=== PATIENT | female | born 1995 | race Caucasian/White ===

== ENCOUNTER 2022-02-24 22:30 | Emergency (ER) | payer OTHER, SELFPAY ==
[2022-02-24 22:51] VITALS: BP 140/111; PULSE 66; RESP 16; TEMP 37.2; O2SAT 99; BMI 19.4
--- NOTE | 2022-02-24 23:10 | CRLHL7_ITS ---
For Patients: As a result of the Cures Act, medical imaging exams and procedure reports are released immediately into your electronic medical record. You may view this report before your referring provider. If you have questions, please contact your health care provider. HISTORY: Pain after impact injury to the top of the foot COMPARISON: None available. FINDINGS: The right foot is examined with AP, lateral, and oblique views. There is no sign of fracture or dislocation. The soft tissues are normal in appearance without sign of radio-opaque foreign body. No degenerative disease is seen. IMPRESSION: Normal right foot. Dictated by Emile Meyer MD @ 02/24/2022 11:42:49 PM (Electronically Signed)
--- NOTE | 2022-02-24 23:10 | ED.GENADULT ---
HPI - General Adult General Time Seen by Provider: 23:10 Date Seen: 02/24/22 Chief complaint: Extremity Pain/Injury, Lower Stated complaint: Right Foot Injury Time Seen by Provider: 02/24/22 22:52 Source: patient and family Mode of arrival: ambulatory Limitations: no limitations History of Present Illness HPI narrative: 18-year-old female who presents today with her spouse for right foot pain after an injury. About 6 hours prior to coming emergency department she hit her foot on a table. Gradual onset of pain on the dorsum of the foot and when she describes as tightness. Able to ambulate. Took ibuprofen before coming in. Related Data Home Medications Medication Instructions Recorded Confirmed ibuprofen 200 mg tablet (Advil) 400 mg PO Q6-8H PRN 02/24/22 02/24/22 oral control 02/24/22 Allergies Allergy/AdvReac Type Severity Reaction Status Date / Time No Known Drug Allergies Allergy Verified 02/24/22 22:58 Review of Systems Status of ROS: Reports: 10 or more systems reviewed and unremarkable except as noted in History and below [facility] Medical History (Updated 02/24/22 @ 23:13 by Alexis Rico MD) Anxiety Exam Narrative: Exam Narrative: General: well nourished , NAD Head: Atraumatic and normocephalic ENT: External ears and external nose are normal Eyes: Conjunctiva clear, pupils are equal reactive, external ocular motions are intact Neck: Full spontaneous range of motion of the neck Lungs: No respiratory distress Musculoskeletal: Tenderness on the dorsum of the right foot. No tenderness at the base of the 5th metatarsal, no pain with midfoot squeeze test. No tenderness, swelling, deformity of the ankle. Pain with passive extension of the toes and ankle across the dorsum of the foot. Neurologic: No gross focal neurologic deficits Skin: No rashes Psych: Mood and affect are appropriate Const: Vital Signs, click to edit/add: Vital Signs - 24 hr 02/24/22 22:51 Temperature 99.0 F Pulse Rate [Left P ulse Oximeter] 66 Respiratory Rate 16 Blood Pressure [Ri ght Upper Arm] 140/111 H Pulse Oximetry 99 Oxygen Delivery Me thod Room Air Course Course Hospital Course: Patient seen and examined, prior records are reviewed. Patient presents today with right foot pain after hitting it on a table at home. Gradual onset, no bony tenderness and negative midfoot squeeze test. This likely represents soft tissue injury, x-rays are ordered to evaluate for bony injury. If these are negative, symptomatic treatment with ice and elevation, Tylenol and ibuprofen for pain. Reevaluation(s) Reevaluation #1: X-ray independently interpreted by me does not demonstrate any acute fracture or bony abnormality, radiology interpretation agrees. Plan to discharge with symptom treatment Time: 23:48 Vital Signs Vital signs: Initial Vital Signs Temperature 99.0 F 02/24/22 22:51 Temperature Source Temporal Artery Scan 02/24/22 22:51 Pulse Rate 66 02/24/22 22:51 Respiratory Rate 16 02/24/22 22:51 Blood Pressure 140/111 H 02/24/22 22:51 Blood Pressure Mean 120 02/24/22 22:51 Blood Pressure Position Sitting 02/24/22 22:51 Pulse Oximetry 99 02/24/22 22:51 Oxygen Delivery Method 02/24/22 22:51 Vital Signs Temperature 99.0 F 02/24/22 22:51 Pulse Rate 66 02/24/22 22:51 Respiratory Rate 16 02/24/22 22:51 Blood Pressure 140/111 H 02/24/22 22:51 Pulse Oximetry 99 02/24/22 22:51 Oxygen Delivery Method 02/24/22 22:51 Temperature 99.0 F 02/24/22 22:51 Pulse Rate 66 02/24/22 22:51 Respiratory Rate 16 02/24/22 22:51 Blood Pressure 140/111 H 02/24/22 22:51 Pulse Oximetry 99 02/24/22 22:51 Oxygen Delivery Method 02/24/22 22:51 Medical Decision Making Medical Records Medical records reviewed: Yes I reviewed the patient's medical records Lab Data Lab results reviewed: Yes I reviewed the patient's lab results Discharge Plan Discharge Clinical Impression: Contusion of foot Patient Disposition: Home w/ Parent or Adult Condition: Stable Instructions: Foot Contusion (ED) Additional Instructions: Elevate the foot as able. Tylenol and ibuprofen as needed for pain. Ice 15-20 minutes at a time every 2-3 hours while awake for the next 2 days. Activity Level: Activity as Tolerated Discharge Diet: Regular Prescriptions: No Action oral control ibuprofen [Advil] 200 mg tablet 400 mg PO Q6-8H PRN Stand Alone Forms: [facility] Info Instructions
== END 2022-02-25 00:03 | disposition home or self-care (01) ==
LOC: ED 23:55
PROVIDERS: Emergency Provider Family Medicine; PCP Family Medicine
DX: M79.671 Pain in right foot (principal); W22.8XXA Striking against or struck by other objects, initial encounter
CPT/HCPCS: 73630; 99283

== ENCOUNTER 2022-03-28 14:01 | Outpatient (CLI) | payer OTHER, SELFPAY ==
[2022-03-31 01:23] LABS: Rubella Antibody IgG 6.5 IU/mL
== END 2022-03-28 14:02 | disposition home or self-care (01) ==
PROVIDERS: PCP Family Medicine; Visit Provider Obstetrics & Gynecology
DX: Z31.69 Encounter for other general counseling and advice on procreation (principal)
CPT/HCPCS: 86762; 86900; 86901

== ENCOUNTER 2022-08-23 08:07 | Outpatient (CLI) | payer OTHER, SELFPAY ==
--- NOTE | 2022-08-23 08:15 | CRLHL7_ITS ---
For Patients: As a result of the Cures Act, medical imaging exams and procedure reports are released immediately into your electronic medical record. You may view this report before your referring provider. If you have questions, please contact your health care provider. INDICATION: First trimester scan, establish dates. COMPARISON: None. TECHNIQUE: Real-time moreno-scale imaging of the pelvis was performed. FINDINGS: Sonographic imaging demonstrates a single living intrauterine gestation. The embryo demonstrates a regular cardiac rate measuring 176 beats per minute. The embryo`s crown-rump length measurement of 3.3 cm corresponds to a gestational age of 10 weeks 1 day with a sonographic due date of 03/20/2023. There is a normal-appearing yolk sac. There are no gross abnormalities noted within the embryo at this early state of development. The gestational sac has a normal appearance. There is no evidence of a perigestational hemorrhage. The amount of fluid within the sac appears appropriate for gestational age. The cervix is closed. The myometrium appears normal. The ovaries are of normal size. There are no suspicious fluid collections noted in the cul-de-sac. IMPRESSION: Normal first trimester OB ultrasound exam. Gestational age calculated at 10 weeks 1 day with a sonographic due date of 03/20/2023. Dictated by Rad Olvera MD @ 08/23/2022 12:03:37 PM (Electronically Signed)
== END 2022-08-23 08:08 | disposition home or self-care (01) ==
LOC: US 08:08
PROVIDERS: PCP Family Medicine; Visit Provider Registered Nurse
DX: Z34.91 Encounter for supervision of normal pregnancy, unspecified, first trimester (principal); Z3A.10 10 weeks gestation of pregnancy
CPT/HCPCS: 76817; 86703; 86803; 86850; 86900; 86901; 87086; 87340; 87491; 87591

== ENCOUNTER 2022-08-23 08:59 | Outpatient (CLI) | payer OTHER, SELFPAY ==
[2022-08-23 17:46] LABS: Chlamydia DNA Amplified* NOT DETECTED (No Detected); GC DNA Amplified* NOT DETECTED (No Detected)
== END 2022-08-23 09:00 | disposition home or self-care (01) ==
PROVIDERS: PCP Family Medicine; Visit Provider Registered Nurse
DX: Z34.91 Encounter for supervision of normal pregnancy, unspecified, first trimester (principal); Z3A.09 9 weeks gestation of pregnancy
CPT/HCPCS: 86592; 86703; 86762; 86787; 86803; 86850; 86900; 86901; 87086; 87340; 87491; 87591

== ENCOUNTER 2022-10-18 17:55 | Outpatient (CLI) | payer OTHER, SELFPAY | END 2022-10-18 17:56 | disposition home or self-care (01) | LOC: NFLDREF 17:57 | PROVIDERS: PCP Family Medicine; Visit Provider Registered Nurse | DX: Z34.92 Encounter for supervision of normal pregnancy, unspecified, second trimester (principal); Z3A.17 17 weeks gestation of pregnancy | CPT/HCPCS: 81511 ==

== ENCOUNTER 2022-11-09 12:03 | Outpatient (CLI) | payer OTHER, SELFPAY ==
--- NOTE | 2022-11-09 12:15 | CRLHL7_ITS ---
For Patients: As a result of the Century Cures Act, medical imaging exams and procedure reports are released immediately into your electronic medical record. You may view this report before your referring provider. If you have questions, please contact your health care provider. INDICATION: Evaluate anatomy. COMPARISON: 08/23/2022 TECHNIQUE: Real time moreno scale imaging of the fetus was performed as well as color Doppler analysis of the umbilical vessels. FINDINGS: Sonographic imaging demonstrates a single living intrauterine gestation. Fetus demonstrates a regular cardiac rate of 138 beats per minute. Fetus has a breech position. The placenta lies anteriorly without evidence of placenta previa. The edge of the placenta is located 3.8 cm from the internal cervical os. Amniotic fluid volume appears normal. Single deepest vertical pocket: 5.4 cm. The cervix is closed and measures 3.7 cm in length. The composite ultrasound gestational age is calculated at 21 weeks 4 days with an estimated sonographic due date of 03/18/2023. The estimated weight is 444 grams which lies at the 95th %. The following biometric measurements were obtained: Biparietal diameter: 5.0 cm/21 weeks 1 day 73rd% Head circumference: 18.6 cm/21 weeks 0 days 58th% Abdominal circumference: 17.7 cm/22 weeks 4 days 94th% Femur length: 3.5 cm/20 weeks 6 days 54th% The HC/AC ratio measures: 1.05 range (1.06-1.24) On anatomic survey, there is a normal appearance of the cerebral ventricles, cavum septi pellucidi, cisterna magna and cerebellum. The nose, lips, and facial profile appear normal. The cervical, thoracic and lumbar spine are well visualized and appear normal. There is a normal four-chamber heart view and the left and right ventricular outflow tracts appear normal. The diaphragm and stomach appear normal. The bladder appears normal. Bilateral pelviectasis measuring 5.7 millimeters on the right and 3.7 millimeters on the left. There is a normal three-vessel cord and there is an eccentric cord insertion site. The four extremities appear normal. IMPRESSION: Sonographic age is 21 weeks 4 days and sonographic due date is 03/18/2023. Sonographic age 1 week ahead of the clinical age. Mild right renal pelviectasis measuring 5.5 millimeters. Follow-up in the 3rd trimester recommended. Remainder of the anatomic survey is normal. Dictated by Rad Olvera MD @ 11/10/2022 11:09:52 AM (Electronically Signed)
== END 2022-11-09 12:04 | disposition home or self-care (01) ==
LOC: US 12:04
PROVIDERS: PCP Family Medicine; Visit Provider Registered Nurse
DX: Z34.92 Encounter for supervision of normal pregnancy, unspecified, second trimester (principal); Z3A.21 21 weeks gestation of pregnancy
CPT/HCPCS: 76805

== ENCOUNTER 2023-01-04 10:50 | Outpatient (CLI) | payer OTHER, SELFPAY | END 2023-01-04 10:51 | disposition home or self-care (01) | LOC: NFLDREF 01-05 11:37 | PROVIDERS: PCP Family Medicine; Referring Provider Family Medicine; Visit Provider Obstetrics & Gynecology | DX: Z34.90 Encounter for supervision of normal pregnancy, unspecified, unspecified trimester (principal) | CPT/HCPCS: 86592; 86850 ==

== ENCOUNTER 2023-01-04 10:57 | Outpatient (CLI) | payer OTHER, SELFPAY ==
--- NOTE | 2023-01-04 11:00 | CRLHL7_ITS ---
For Patients: As a result of the Century Cures Act, medical imaging exams and procedure reports are released immediately into your electronic medical record. You may view this report before your referring provider. If you have questions, please contact your health care provider. INDICATION: Third trimester scan, evaluate growth. COMPARISON: 11/09/2022 TECHNIQUE: Real time moreno scale imaging of the fetus was performed. FINDINGS: Sonographic imaging demonstrates a single living intrauterine gestation. Fetus demonstrates a regular cardiac rate of 149 beats per minute. Fetus has a vertex position. The placenta lies left anterior. The edge of the placenta is located 6.8 cm from the internal cervical os. Amniotic fluid volume appears normal and there is a single deepest vertical pocket: 5.5 cm. The estimated weight is 1310gm which lies at the 51st %. On the prior OB ultrasound exam dated 11/09/2022 the estimated weight was at the 95th%. BPD 84th percentile. HC 78th percentile. AC 46th percentile. FL 36th percentile. The HC/AC ratio measures 1.14 range (0.98-1.20). Left renal pelviectasis measures 2 millimeters, considered normal. Placental cord insertion cannot be visualized on the current study. IMPRESSION: Sonographic gestational age 29 weeks 4 days and sonographic due date 03/18/2023. Sonographic age 1 week ahead of the clinical age. Estimated weight 51st percentile. Abdominal circumference 46th percentile. Dictated by Rad Olvera MD @ 01/06/2023 11:26:51 AM (Electronically Signed)
== END 2023-01-04 10:58 | disposition home or self-care (01) ==
PROVIDERS: PCP Family Medicine; Visit Provider Obstetrics & Gynecology
DX: Z34.93 Encounter for supervision of normal pregnancy, unspecified, third trimester (principal); Z3A.29 29 weeks gestation of pregnancy
CPT/HCPCS: 76816; 86850

== ENCOUNTER 2023-02-27 12:40 | Outpatient (CLI) | payer OTHER, SELFPAY | END 2023-02-27 12:41 | disposition home or self-care (01) | PROVIDERS: PCP Family Medicine; Referring Provider Family Medicine; Visit Provider Obstetrics & Gynecology | DX: Z36.85 Encounter for antenatal screening for Streptococcus B (principal) | CPT/HCPCS: 87081; 87653 ==

== ENCOUNTER 2023-03-14 13:45 | Outpatient (RCR) | payer OTHER, SELFPAY | END 2023-05-19 17:10 | disposition home or self-care (01) | PROVIDERS: PCP Family Medicine; Visit Provider Obstetrics & Gynecology | DX: M25.512 Pain in left shoulder (principal); M41.9 Scoliosis, unspecified; M54.50 Low back pain, unspecified; Z51.89 Encounter for other specified aftercare; M62.89 Other specified disorders of muscle; R29.3 Abnormal posture; M54.6 Pain in thoracic spine; R29.898 Other symptoms and signs involving the musculoskeletal system; N39.41 Urge incontinence; K59.00 Constipation, unspecified; Z33.1 Pregnant state, incidental; Z3A.34 34 weeks gestation of pregnancy | CPT/HCPCS: 97110; 97140; 97162 ==

== ENCOUNTER 2023-03-25 21:13 | Outpatient (CLI) | payer OTHER, SELFPAY ==
[2023-03-25 21:41] VITALS: BP 127/79; PULSE 61; RESP 16; TEMP 36.7
[2023-03-25 21:51] LABS: Amnisure Rom* Negative
[2023-03-25 23:12] LABS: Appearance Urine Clear (Clear); Bilirubin Urine Negative (Negative); Blood Urine Trace-intact (Negative); Color Urine Yellow (Yellow); Glucose Urine Negative (Negative); Ketones Urine Negative (Negative); Leukocyte Esterase Urine Trace (Negative); Nitrite Urine Negative (Negative); Protein Urine Negative (Negative); Urobilinogen Urine 0.2 (0.2-1.0)
[2023-03-25 23:17] LABS: Bacteria Urine Moderate; RBC Urine 0-2 (0-2); Squamous Epithelial Cell Urine Few (None-Few)
--- NOTE | 2023-03-25 23:36 | PC.OBNST ---
NST Note NST Note Start: 03/25/23 21:18 Freq: ONCE Status: Active Protocol: Document 03/25/23 23:35 BARBARA (Rec: 03/25/23 23:36 BARBARA [id number]) NST Note 1 Para (# of births) 0 EDC 03/25/23 Gestational Age In Weeks & Days 40 Weeks & 0 Days Patient Presented with Complaint(s) of Leaking fluid,Other Other Complaints Questionable rupture of membranes Reactive Yes RN Davide Lawrence, ALTAGRACIA Date 03/25/23 Reactive Yes ALTAGRACIA Brock, ALTAGRACIA Date 03/25/23 OB NST charge Yes Complete NST Note via Write Note Yes The provider's electronic signature indicates the NST is reactive/appropriate for gestational age. *Note to provider: If an addendum is required, open the patient's chart and click on the note under the Nurse/Allied Health tab.
[2023-03-26 00:13] LABS: Bacterial Vaginosis* Not Detected (No Detected); Candida glab/krus Not Detected (No Detected); Candida species Not Detected (No Detected); Trichomonas vaginalis Not Detected (No Detected)
== END 2023-03-25 22:30 | disposition home or self-care (01) ==
LOC: OB OUT 21:13 → OB 21:15
PROVIDERS: PCP Family Medicine; Visit Provider Obstetrics & Gynecology
DX: O47.1 False labor at or after 37 completed weeks of gestation (principal); Z3A.40 40 weeks gestation of pregnancy
CPT/HCPCS: 59025; 81003; 81015; 81513; 84112; 87086; 87481; 87661; G0463

== ENCOUNTER 2023-03-31 05:53 | Inpatient (IN) | payer OTHER, SELFPAY ==
[2023-03-31] VITALS (67 sets, daily range): BP systolic 93–136; BP diastolic 52–79; PULSE 67–112; RESP 15–18; TEMP 36.7–37.1; O2SAT 93–100; BMI 23.3
[2023-03-31 07:19] LABS: Basophils Percent Auto 0.2 % (0.0-3.0); Eosinophils Percent Auto 0.2 % (0.0-7.0); Hematocrit 34.6 % (33.0-51.0); Hemoglobin* 11.8 gm/dL (12.0-16.0); Immature Granulocytes Pct Auto 0.2 %; Lymphocytes Percent Auto 11.4 % (20-44); Mean Corpuscular HGB Conc 34 gm/dL (32-36); Mean Corpuscular Hemoglobin 35 pg (26-34); Mean Corpuscular Volume 102 fL (80-100); Monocytes Percent Auto 5.4 % (0.0-11.0); Neutrophils Percent Auto 82.6 % (42.0-72.0); Platelet Count* 253 K/uL (140-440); RDW Coefficient of Variation % 12.1 % (11.5-15.5); Red Blood Count 3.41 m/uL (4.00-5.20); White Blood Count* 11.74 K/uL (4.50-11.00)
[2023-03-31 07:21] LABS: Slide Review Reflex No
--- NOTE | 2023-03-31 12:06 | P.LDBA_ITS ---
Subjective History of Present Illness Time Seen by Provider: 09:00 Date Seen: 03/31/23 Narrative: Gypsy is being admitted to Labor and Delivery for early labor. She was originally scheduled to have an induction of labor today but she came in, in early labor instead. She is a 27 year old at 40 weeks 6 days gestation. Her full history and physical was dictated by Dr. Potter on 03/10/2023. Please see this for details. Specific Issues/Plans Gypsy G 1 P 0 : Wilmer. Baby: Girl. H&P by [facility] on 03/10/23 1. Nausea and significant food aversions. Last 10 lb prior to 1st OB visit. No vomiting. Fay submitted. 2. History of anxiety. Mood stable at 1st OB visit. Patient plans to monitor for any mood symptoms. 3. anatomy scan: Right pyelectasis, 5.5 mm. EFW 95%. Repeat US for: EFW and pyelectasis @ 28 wks. * 01/04/23 f/u EFW and pylectasis: EFW: 1310 g, 2 lb 14 oz, 51%. Right renal pelvis< 2mm. Left renal pelvis 2 mm. 4. History of vulvar vestibulitis, recurrent pain with intercourse. Topical lidocaine ointment started at 20 wks gestation. 5. Hx of scoliosis, worsening left shoulder/upper extremity pain and numbness. PT consult ordered on 12/07. COVID: Not vaccinated. Recommended. Reviewed risks of COVID infection during . Declined booster. FLU: 11/09/22 RSV: 02/02/2023 TDAP: 01/20/23 OB - Problem Based A/P Additional Plan (1) Spontaneous onset of labor: Status: Acute Plan 1. The patient is planning an epidural for labor analgesia 2. GBS negative 3. Blood type is O positive, antibody screen negative 4. Expected management. OB Exam Physical Exam Vital signs: Temp Pulse Resp BP Pulse Ox 98.1 F 72 18 131/77 98 03/31/23 11:03/31/23 11:25 03/31/23 11:03/31/23 11:03/31/23 06:14 Narrative: GENERAL APPEARANCE: Pleasant, , well-groomed woman in no acute distress. VITAL SIGNS: as noted in nursing notes HEAD: Normocephalic, atraumatic. THYROID: no masses, nodularity, tenderness or enlargement. LUNGS: Clear to auscultation bilaterally without wheezes, rales or rhonchi. HEART: Regular rate and rhythm with normal S1 and S2. No gallop, rub or murmur. ABDOMEN: Gravid. Soft, nontender, nondistended, with normal bowels sounds throughout. EFM: 130s baseline, accelerations present, decelerations absent, reactive, category 1. PRESENTATION: Vertex by Jose's maneuvers. SVE per nursin-4 cm/ 90 %/ -1/soft/anterior. Lal score: 11 EXTREMITIES: No cyanosis, clubbing, or edema. No varicosities. NEUROLOGIC: Normal gait and balance. Normal deep tendon reflexes at bilateral patella 2+/2, equal without clonus. PSYCHIATRIC: alert and oriented x3. Normal speech pattern, eye contact and affect. SKIN: Warm, dry, and well perfused. Good turgor. No lesions, nodules or rashes.
[2023-03-31] MEDS: LACTATED RINGERS 1000 ML 1,000 ML 500 ML IV ×2 (12:39→13:49)
[2023-03-31] MEDS: ROPIVACAINE 0.2% 100 ml 100 ML 12 MG EPIDURAL ×2 (13:22→19:33)
--- NOTE | 2023-03-31 13:37 | PM.ANBPRC ---
PFSH PFS Medical History Anxiety ?F41.9 - Anxiety disorder, unspecified (ICD-10) Surgical History H/O wisdom tooth extraction ?K08.409 - Partial loss of teeth, unspecified cause, unspecified class (ICD-10) Family History Paternal Grandfather Diabetes Paternal Grandmother Osteoporosis Father Multiple sclerosis Social History What is your current living situation?: I presently have a place to live Problems where you live: no known problems In the past 12 months, utilities in danger of being shut off: no In past 12 months, lack of transportation kept you from medical appts, meetings, work, or getting things needed for daily living: no In the past 12 mos, have been you worried that your food would run out before you had money to buy more?: never true In the past 12 mos, the food you bought just didn't last and you didn't have money to buy more?: never true Smoking Status: Never smoker How often does anyone, including family, friends and others, physically hurt you: never How often does anyone, including family, friends and others, insult or talk down to you: never How often does anyone, including family, friends and others, threaten you with harm: never How often does anyone, including family, friends and others, scream or curse at you: never Little interest or pleasure in doing things: not at all Feeling down, depressed, or hopeless: not at all Meds Home Medications and Allergies Home Medications Medication Instructions Recorded Confirmed Type docosahexaenoic acid 200 mg mg PO 08/23/22 03/24/23 History capsule ( DHA) Allergies Allergy/AdvReac Type Severity Reaction Status Date / Time No Known Drug Allergies Allergy Verified 03/24/23 15:18 Results Labs Labs: Laboratory Results - last 24 hr 03/31/23 07:03 WBC 11.74 H RBC 3.41 L Hgb 11.8 L Hct 34.6 MCV 102 H MCH 35 H MCHC 34 RDW Coeff of Ever 12.1 Plt Count 253 Neut % (Auto) 82.6 H Lymph % (Auto) 11.4 L [place] % (Auto) 5.4 Eos % (Auto) 0.2 Baso % (Auto) 0.2 Neut # (Auto) 9.70 H Lymph # (Auto) 1.30 [place] # (Auto) 0.60 Eos # (Auto) 0.00 Baso # (Auto) 0.00 Abs Immat Gran (auto) 0.00 Imm/Tot Granulo (auto) 0.2 Blood Type O Positive Antibody Screen NEGATIVE Vital Signs Vital Signs: Last Vital Signs Temp 98.4 F 03/31/23 13:37 Pulse 68 03/31/23 13:33 Resp 18 03/31/23 13:37 BP 131/73 03/31/23 13:33 Pulse Ox 97 03/31/23 13:36 Weight: 73.845 kg Height: 177.8 cm Anesthesia Procedures Epidural Insertion Patient Location: OB Start Time: 13:00 Stop Time: 13:38 Start Date: 03/31/23 Stop Date: 03/31/23 Reason for Block: procedure for pain Patient Position: sitting Performed By: Bj Tapia Preanesthetic Checklist: IV checked, risks and benefits discussed, monitors and equipment checked, pre-op evaluation, timeout performed and anesthesia consent Prep: chlorhexidine gluconate Monitoring: blood pressure monitoring, continuous pulse oximetry and heart rate Approach: midline Vertebral Space: lumbar (1-5) Epidural Technique: FARHAT saline Needle Type: Tuohy needle Injection Technique: continuous catheter Needle gauge: 17 Needle Length (cm): 10 cm Needle Insertion Depth (cm): 6 Catheter Gauge: 19 Catheter Type: multi-orifice Catheter at skin depth (cm): 12 Test Dose Result: negative and lidocaine 1.5% with epinephrine 1 to 200,000
--- NOTE | 2023-03-31 14:18 | PM.OBPNL ---
Subjective Time Seen by Provider: 14:05 Date Seen: 03/31/23 Narrative: Subjective: Patient is comfortable w/ epidural. Has not required Pitocin augmentation. Verbal consent obtained for artificial rupture of membranes. Vital signs: Per electronic medical record. EFM: Baseline 140s, positive accelerations, negative decelerations, moderate variability, reactive. Category 1. [place]: Contractions every 2-3 minutes. SVE: 6 cm/9 %/0. AROM with clear fluid at 2:10 p.m. Assessment: 27-year-old 1 para 0 at 40 weeks 6 days gestation progressing in labor Plan: 1. Started Pitocin per induction protocol if needed. 2. Expectant management. Objective Vital Signs: Last Vital Signs Temp 98.4 F 03/31/23 13:37 Pulse 71 03/31/23 14:14 Resp 18 03/31/23 13:37 BP 99/57 L 03/31/23 14:14 Pulse Ox 96 03/31/23 13:41
[2023-03-31] MEDS: ONDANSETRON 2 MG/ML inj 4 MG IV (17:11)
--- NOTE | 2023-03-31 18:19 | PM.OBPNL ---
Subjective Time Seen by Provider: 17:45 Date Seen: 03/31/23 Narrative: Subjective: The patient is comfortable with an epidural. She is not on Pitocin. Vital signs: Per electronic medical record. EFM: Baseline 140s, positive accelerations, [+/-] decelerations, moderate variability, reactive. Category 1. [place]: Contractions every 2 minutes. SVE: 9+cm/100 %/+1. Assessment: 27-year-old 1 para 0 at 40 weeks 6 days gestation progressing through labor Plan: 1. Expect vaginal delivery. Objective Vital Signs: Last Vital Signs Temp 98.2 F 03/31/23 17:52 Pulse 80 03/31/23 18:14 Resp 18 03/31/23 17:52 BP 100/72 03/31/23 18:14 Pulse Ox 96 03/31/23 13:41
[2023-03-31] MEDS: OXYTOCIN 30 unit/500 ML in NS 30 UNIT/500 ML BAG 300 UNIT IVPB (19:49)
--- NOTE | 2023-03-31 20:11 | W.PM.VAGDEL1 ---
Procedure Delivery date: 03/31/23 Procedure Done: Global Procedure Details: Gypsy is a 27 year-old G 1 P 0 now 1 admitted on 03/31/2023 at 7:00 a.m. at 40 Weeks, 6 Days gestation for spontaneous onset of labor. AROM occurred at 2:04 p.m. on 03/31/2023 with clear fluid. Labor Analgesia: Epidural Pitocin: No Labor onset: 03/31/2023 at 10:00 a.m. Complete: 03/31/2023 at 6:56 p.m. Pushin03/31/2023 at 7:01 p.m. heart tones during second stage were: Reassuring with some variable decelerations with contractions while pushing with immediate return to baseline and moderate variability between contractions.. At 7:47 p.m. a viable female infant delivered in vertex direct OA presentation over second-degree perineal laceration via spontaneous vaginal delivery. The was placed on maternal abdomen. Cord was clamped and cut after a 60 second delay. Nose and mouth were bulb suctioned. weight pending. 8 at 1 minute and 9 at 5 minutes, respectively. Shoulder dystocia: No. Nuchal cord: No Placenta delivered spontaneously and complete at 7:58 p.m. with a 3 vessel cord. Laceration(s): Second-degree perineal. Repaired using 3-0 Vicryl suture in the usual manner. Blood loss: 100 mL. Blood loss measurement type: Quantitative Sponge and needles counts are correct. Specimen: None Mother and infant were stable after delivery. Infant's name: Pending The patient is planning on breast feeding. Events: Labor Augmentation Intrapartal Events: Labor Augmentation Delivery augmentation: rupture of membranes Delivery monitor: external FHT Route of delivery: Laceration description: Perineal - 2nd Degree Delivery repair: Vicryl Anesthesia type: Epidural Disposition: floor Complications: none
[2023-03-31] MEDS: IBUPROFEN 600 MG TABLET PO (22:40)
[2023-04-01 03:29] VITALS: BP 115/78; PULSE 76; RESP 18; TEMP 37.2
[2023-04-01] MEDS: IBUPROFEN 600 MG TABLET PO ×3 (08:48→20:55)
[2023-04-01] MEDS: DOCUSATE SODIUM 100 MG CAPSULE PO (08:49)
[2023-04-01 08:50] VITALS: BP 119/84; PULSE 83; RESP 18; TEMP 36.7; O2SAT 98
--- NOTE | 2023-04-01 10:12 | P.OBPN_ITS ---
OB - PN:Subj Subjective Date Seen: 04/01/23 Interval history: Love is a 27 y.o. who was admitted to L & D for induction of labor but was found to be in labor. ?She had an uncomplicated spontaneous vaginal delivery .?The patient feels well. ?The pain is well controlled with current medications. ?She has no new complaints. ?She is and reports things are going well.? the patient has done well.? Vitals have been stable.? She has remained afebrile.? Has a good appetite, is tolerating a general diet. ?She is voiding without difficulty.? She is passing gas and has not had a bowel movement.? She is ambulating and denies any dizziness.? Has small amount of rubra lochia. ? status: [place] feeding status: exclusively OB - PN: Obj Exam Physical Exam: Vital signs: Temp Pulse Resp BP Pulse Ox O2 Del Method 98.0 F 83 18 119/84 98 Room Air 04/01/23 08:50 04/01/23 08:50 04/01/23 08:50 04/01/23 08:50 04/01/23 08:50 04/01/23 08:50 Narrative: VITAL SIGNS: As noted above. GENERAL APPEARANCE: Alert, cooperative female in no acute distress. MOOD & AFFECT: Normal. ABDOMEN: Soft, non-distended and nontender. : Normal lochia EXTREMITIES: Nonedematous. Well perfused. Nontender. OB - PN: A/P Delivery Assessment and Plan (1) Spontaneous onset of labor: Status: Acute Plan day: 1 Plan: routine care Comments: Plan for discharge tomorrow morning.
--- NOTE | 2023-04-01 12:51 | PM.ANPOST ---
Post Anesthesia Note Post Anesthesia Note Patient seen: Inpatient Respiratory Status: adequate Cardiovascular Status: adequate Mental Status: baseline Pain: adequate Temp: baseline Anesthetic awareness: N/A Complications: none Follow care: none
[2023-04-01 12:56] VITALS: BP 125/78; PULSE 83; RESP 18; TEMP 36.7
[2023-04-01 16:00] VITALS: BP 118/78; PULSE 83; RESP 18; TEMP 36.7; O2SAT 97
[2023-04-01 20:56] VITALS: BP 118/75; PULSE 69; RESP 18; TEMP 36.5; O2SAT 97
[2023-04-02 01:46] VITALS: BP 126/84; PULSE 64; RESP 18; TEMP 36.6; O2SAT 97
[2023-04-02] MEDS: IBUPROFEN 600 MG TABLET PO ×2 (04:44→09:21)
--- NOTE | 2023-04-02 09:04 | P.DS_ITS ---
DS: Providers Provider Date Seen: 04/02/23 Date of admission: 03/31/23 05:53 Primary care physician: Brielle Combs MD Admitting Clinician: Katerina Duong MD Attending Physician on discharge: Gerri Roth MD Date of Discharge: 04/02/23 DS: Diagnosis Discharge Diagnosis (1) (normal spontaneous vaginal delivery): Status: Acute Exam Narrative: Exam Narrative: VITAL SIGNS: As noted above. GENERAL APPEARANCE: Alert, cooperative female in no acute distress. MOOD & AFFECT: Normal. ABDOMEN: Soft, non-distended and nontender. Well contracted uterus below umbilicus. : Normal lochia. EXTREMITIES: Nonedematous. Well perfused. Nontender. Const: Vital Signs, click to edit/add: Vital Signs - 24 hr 04/01/23 12:56 04/01/23 16:00 04/01/23 20:56 Temperature 98.0 F 98.0 F 97.7 F Pulse Rate [Blood Pressure Cuff] 83 83 69 Respiratory Rate 18 18 18 Blood Pressure [Le ft Arm] 125/78 118/78 118/75 Pulse Oximetry 97 97 Oxygen Delivery Me thod Room Air Room Air Room Air 04/02/23 01:46 Temperature 97.9 F Pulse Rate [Blood Pressure Cuff] 64 Respiratory Rate 18 Blood Pressure [Le ft Arm] 126/84 Pulse Oximetry 97 Oxygen Delivery Me thod Room Air OB - DS: Summary Hospital Course Hospital Course: The patient is a 27 year old G 1 P 1001 at 40 6/7 weeks gestation that was admitted to the Center on 03/31/23 for induction of labor, was found to be in labor. She had an uncomplicated vaginal delivery. She delivered a viable female . She is breast feeding. the patient has done well. Peripartum Data Infant delivery method: Vaginal Laceration description: Perineal - 2nd Degree complications: none Infant Gender: Female Discharge Plan: Home Status at Discharge Functional status at discharge: independent ambulation Overall status at discharge: patient is progressing back to baseline Time Spent with Patient Time attestation: Total time spent providing and/or coordinating discharge services: Time spent: Less than 30 minutes Discharge Plan Discharge Disposition: Home, Self-Care Date of Admission: 03/31/23 05:53 Attending Provider on Discharge: Gerri Roth Primary Care Provider: Brielle Combs Condition: Stable Anticipated Discharge Date/Time: 04/02/23 09:07 Discharge Medications: New acetaminophen 500 mg Tablet 1,000 mg PO Q6H PRNQty: 30 0RF ibuprofen 600 mg Tablet 600 mg PO Q6H PRNQty: 30 0RF Continued DHA 200 mg capsule 200 mg PO DAILY Discontinued ondansetron 4 mg tablet,disintegrating 4 mg PO Q6H PRN (Reason: nausea and vomiting) Qty: 30 1RF lidocaine 5 % ointment 1 applic topical BID PRN (Reason: skin irritation) Qty: 30 0RF Discharge Orders: Discharge Order (Routine); Ordered 04/02/23 Ordered By: Gerri Roth Patient Education: OB Vaginal/Breast Feeding Activity Level: Activity as Tolerated Activity Detail: Nothing vaginally for 6 weeks Discharge Diet: Regular Follow Up Appointments: Brielle Combs MD [Primary Care Provider] - [facility] Discharge Comments: Follow up for 2 week visit and 6 week visit/interested in progesterone only pills.
[2023-04-02 09:15] VITALS: BP 115/71; PULSE 64; RESP 18; TEMP 37
[2023-04-02 09:15] LABS: Rapid Plasma Reagin (RPR) Non Reactive (Non Reactive)
[2023-04-02] MEDS: DOCUSATE SODIUM 100 MG CAPSULE PO (09:21)
== END 2023-04-02 12:45 | disposition home or self-care (01) | DRG 807 ==
PROVIDERS: Admitting Provider Obstetrics & Gynecology; PCP Family Medicine; Visit Provider Obstetrics & Gynecology
DX: O70.1 Second degree perineal laceration during delivery (principal); Z37.0 Single live birth; Z3A.40 40 weeks gestation of pregnancy; O99.344 Other mental disorders complicating childbirth; F41.9 Anxiety disorder, unspecified; N94.810 Vulvar vestibulitis; Z87.39 Personal history of other diseases of the musculoskeletal system and connective tissue
CPT/HCPCS: 01967; 36415; 85018; 85025; 86592; 86850; 86900; 86901; A9270; J0665; J2371; J2405; J2795; J7120

== ENCOUNTER 2023-07-14 08:15 | Outpatient (CLI) | payer OTHER, SELFPAY | END 2023-07-14 08:16 | disposition home or self-care (01) | LOC: NFLDREF 08:16 | PROVIDERS: PCP Family Medicine; Visit Provider Registered Nurse | DX: N92.6 Irregular menstruation, unspecified (principal) | CPT/HCPCS: 84443 ==

== ENCOUNTER 2024-11-27 13:01 | Outpatient (CLI) | payer BC, SELFPAY ==
--- NOTE | 2024-11-27 13:15 | CRLHL7_ITS ---
For Patients: As a result of the Cures Act, medical imaging exams and procedure reports are released immediately into your electronic medical record. You may view this report before your referring provider. If you have questions, please contact your health care provider. OBSTETRICAL ULTRASOUND TRANSVAGINAL CLINICAL INDICATION: Dating and viability. LMP: 09/26/2024 ALBERTA by LMP: 07/03/2025 Gestational age: 8 weeks 6 days PREVIOUS ULTRASOUND: No TECHNIQUE: Real-time moreno-scale imaging of the fetus was performed transvaginal. Transvaginal imaging was performed for better visualization of the endometrium and ovaries. FINDINGS: CRL: 2.2 cm, 8 weeks 6 days; ALBERTA 07/03/2025 heart rate: 189 BPM Gestational sac: 4.0 cm, appears within normal limits Yolk sac: 3.8 mm, appears within normal limits Right ovary: 3.5 x 3.0 x 2.7 cm, CL Left ovary: 3.0 x 1.7 x 2.2 cm IMPRESSION: 1. Single living intrauterine measures 8 weeks 6 days with sonographic due date of 07/03/2025. 2. Subchorionic hemorrhage measures 2.1 x 0.3 x 1.3 cm. 3. Corpus luteal cyst of right ovary. 4. heart rate 189 beats per minute. RAD WREN M.D. Diagnostic Radiologist [email or web address] Transcribed: 5:[address]/Dictated by: Rad Wren MD @ 11/27/2024 5:30:00 PM (Electronically Signed)
== END 2024-11-27 13:02 | disposition home or self-care (01) ==
LOC: US 13:04
PROVIDERS: PCP Family Medicine; Visit Provider Registered Nurse
DX: O20.9 Hemorrhage in early pregnancy, unspecified (principal); O34.81 Maternal care for other abnormalities of pelvic organs, first trimester; N83.11 Corpus luteum cyst of right ovary; Z3A.08 8 weeks gestation of pregnancy
CPT/HCPCS: 76817; 83021; 86592; 86703; 86704; 86706; 86762; 86787; 86803; 86850; 87086; 87340; 87491; 87591; 87624

== ENCOUNTER 2024-11-27 14:03 | Outpatient (CLI) | payer BC, SELFPAY ==
[2024-11-27 20:47] LABS: Chlamydia DNA Amplified* NOT DETECTED (No Detected); GC DNA Amplified* NOT DETECTED (No Detected)
[2024-11-30 03:18] LABS: HPV Source Cervix
[2024-12-03 09:37] LABS: Pap Test Digital Imaging Done
== END 2024-11-27 14:04 | disposition home or self-care (01) ==
PROVIDERS: PCP Family Medicine; Visit Provider Registered Nurse
DX: Z12.4 Encounter for screening for malignant neoplasm of cervix (principal)
CPT/HCPCS: 83020; 83021; 85660; 86592; 86703; 86704; 86706; 86762; 86787; 86803; 86850; 87086; 87340; 87491; 87591; 87624; 87625; 88141; 88142; 88175

== ENCOUNTER 2025-01-24 14:29 | Outpatient (CLI) | payer BC, SELFPAY | END 2025-01-24 14:30 | disposition home or self-care (01) | LOC: NFLDREF 14:33 | PROVIDERS: PCP Family Medicine; Visit Provider Obstetrics & Gynecology | DX: Z34.92 Encounter for supervision of normal pregnancy, unspecified, second trimester (principal) | CPT/HCPCS: 81511 ==